=== PATIENT | male | born 1985 ===

== ENCOUNTER 2022-02-02 07:18 | Outpatient (REF) | payer SELFPAY ==
--- NOTE | ~2022-02-02 | FL_ITS ---
EXAMINATION: XR FLUOROSCOPY WITH IMAGES CLINICAL INFORMATION: M47.816 - Spondylosis without myelopathy or radiculopathy, lumbar region COMPARISON: Radiographs lumbar spine 02/19/2020 ([facility]). TECHNIQUE: Fluoroscopy performed by Dr. Zev Singh. Fluoroscopy time: 0.6 minutes. Cumulative Dose: 10.3 mGy. DAP: 2.81 Gy-cm2. Images: 6. FINDINGS: There are spinal needles overlying the bilateral outer L3, L4, and L5 neural foramen. There is contrast seen in the respective nerve sheaths. Some early transforaminal epidural extension is suggested. No visible vascular communication. FL/FL guidance in treatment room IMPRESSION: Fluoroscopy for pain management procedures.
== END 2022-02-02 07:19 | disposition home or self-care (01) ==
LOC: HO.RADIR 07:18
PROVIDERS: Visit Provider Anesthesiology
DX: M47.816 Spondylosis without myelopathy or radiculopathy, lumbar region (principal); G89.4 Chronic pain syndrome
CPT/HCPCS: 64493; 64494; J2795

== ENCOUNTER 2022-03-02 06:02 | Outpatient (REF) | payer OTHER, SELFPAY | END 2022-03-02 06:03 | disposition home or self-care (01) | LOC: CF 06:02 | PROVIDERS: Visit Provider Anesthesiology | DX: Z13.89 Encounter for screening for other disorder (principal) ==

== ENCOUNTER 2022-03-23 05:55 | Outpatient (REF) | payer OTHER, SELFPAY ==
--- NOTE | ~2022-03-23 | FL_ITS ---
EXAMINATION: XR FLUOROSCOPY WITH IMAGES CLINICAL INFORMATION: M47.816 - Spondylosis without myelopathy or radiculopathy, lumbar region COMPARISON: Radiographs lumbar spine 02/19/2020 TECHNIQUE: Fluoroscopy performed by Dr. Zev Singh. Fluoroscopy time: 0.6 minutes. Cumulative Dose: 10.2 mGy. DAP: 0.79 Gy-cm2. Images: 7. FINDINGS: There are spinal needles overlying the bilateral outer L3, L4, and L5 neural foramen. There is contrast seen in the respective nerve sheaths. Some early transforaminal epidural extension is suggested. No visible vascular communication. FL/FL guidance in treatment room IMPRESSION: Fluoroscopy for pain management procedures.
== END 2022-03-23 05:56 | disposition home or self-care (01) ==
LOC: CF 05:55
PROVIDERS: Visit Provider Anesthesiology
DX: M47.816 Spondylosis without myelopathy or radiculopathy, lumbar region (principal); G89.4 Chronic pain syndrome
CPT/HCPCS: 64490; 64491; Q9965

== ENCOUNTER 2023-07-14 13:26 | Outpatient (AMB) | payer SELFPAY ==
--- NOTE | 2023-07-14 13:33 | A.OFFVIS_ITS ---
Intake Vital Signs 07/14/23 13:39 Height 6 ft 1 in Weight 205 lb 6 oz BMI 27.1 BP 124/74 Blood Pressure Location Lt brachial Position Sitting Respiration 17 Pulse 88 Pulse Source Pulse Oximeter Pulse Oximetry (%) 97 Oxygen Delivery Method Room Air Intake Visit Reasons: Back pain/lvm Intake Note: Patient comes in for back pain. Reports pain 03/01. Allergies No Known Allergies Allergy (Verified 07/14/23 13:37) HPI HPI Comments History of Present Illness Details Chalino is in the office today to discuss results of diagnostic medial branch block with ropivacaine which was done on 03/23/2022. Reported that he had 1 year of pain relief with this procedure. He requests me to repeat this procedure with steroids. I will schedule the procedure as soon as possible. He also complains on pain in the projection of the coccyx. I will schedule him in 1 month from the therapeutic medial branch block for the ganglion impar injection to treat his coccydynia. PNS sprint was also discussed today as well as radiofrequency ablation. However the patient does not want to go for the radiofrequency ablation, he does not like the idea of sprint PNS because he needs to get involved in the care of his parents and help them to perform ADLs as well as assist them with transportation, guarding, lifting. results of diagnostic medial branch block L3-L4 dorsal ramus L5 bilateral 2. With ropivacaine done on 03/23/2022. He reports 75-100% pain improvement after the procedure for the 1st 9 hours. Risks and benefits of the procedure were carefully explained to the patient. Patient was asking numerous questions about the procedure. I will schedule the patient for the procedures as above. Prior: He complains on 2 pain generators in lower lumbar spine without radiation and he had another 1 in the thoracic spine in between the shoulder blades also without radiations. 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 he had MRI many years ago back in [facility] the results are not available, he had physical therapy 2 years ago he reports no pain improvement, without any significant improvement for his pain. He reports that massage therapy helped minimally for his pain he tried acupuncture but it was not helpful for his pain. He has home traction unit however he does not use it recently because he noticed that this is not helpful for his pain. In the past he received [facility] injections with steroids it sounds like from his explanation the injections were facet joint injections or may be medial branch blocks in the thoracic spine. The note from [facility] reports that he will be scheduled for sacroiliac joint injection however I do not have records demonstrating sacroiliac joint injection to be performed Review of Systems Const All systems reviewed & are unremarkable except as noted in HPI and below ENT Reports Normal hearing present Neuro Reports Normal hearing present, Denies Abnormal speech present and Denies Sensory deficit (Neuro) Physical Exam Vital Signs: Last Vital Signs Pulse 88 07/14/23 13:39 Resp 17 07/14/23 13:39 BP 124/74 07/14/23 13:39 Pulse Ox 97 07/14/23 13:39 Oxygen Delivery Method Room Air 07/14/23 13:39 BMI result Body Mass Index 27.1 Const General: no acute distress Orientation/consciousness: patient oriented x3 Eyes General: appearance normal, both eyes and all related structures Pupils: Equal, round and reactive pupils present EOM: EOMs intact bilaterally Neck Neck: Yes full ROM Chest Chest palpation & inspection: normal inspection of the chest Resp Effort & Inspection: normal respiratory effort, able to speak in complete sentences, normal respiratory pattern, no audible wheezes and no cough Cardio Jugular venous distension: no JVD GI Inspection: Yes normal to inspection Back/Spine/Pelvis Other: He is able to stand on bilateral tiptoes in bilateral heels without difficulty. He is able to lift both great toes from the ground without involving the rest of the toes. This demonstrates normal extremity strength and muscular function. He is able to flex himself forward and backwards he reports significant difficulty with flexing backwards. Loading test is positive bilaterally. Polo test at the best is equivocal and rather negative. Tenderness on palpation in the projection of the coccygeal spine. Neuro General: patient oriented x3 and gait normal Cranial nerves: Yes CN's II-XII intact bilaterally, Yes Equal, round and reactive pupils present, Yes Normal hearing present and Yes Ability to bilaterally elevate shoulders present Speech: No Abnormal speech present Gait exam (Neuro): Normal gait present Motor exam (neuro): 5/5 motor strength present throughout Sensory Exam: No Sensory deficit (Neuro) Extrem General: No pedal edema Psych Speech and movement: Normal speech and movement present Affect: normal affect Attitude: cooperative Thought process: Normal thought process present Thought content: Normal thought content present Insight: Good insight present (Psych) Judgement: Good judgement present (Psych) Assessment & Plan Assessment & Plan (1) Spondylosis of lumbar region without myelopathy or radiculopathy: Code(s): M47.816 - Spondylosis without myelopathy or radiculopathy, lumbar region (2) Chronic pain syndrome: Code(s): G89.4 - Chronic pain syndrome Plan This patient is suffering from spondylosis of the lumbar spine and disc degeneration of the lumbar spine. Lasts [place] of this [place]. Diagnostic MBB 1. Resulted in 75% pain improvement in about 2 hours. Diagnostic 2. With ropivacaine resulted in 100% to 75% for the 9 hours after the injection. Options of RFA versus sprint were given to the patient. He is choosing to go for therapeutic injection instead. He also requests me to perform ganglion impar injection. I will schedule a ganglion impar injection for treatment of his coccydynia after 1 month from the diagnostic MBB. Coding Level of Care Code Est Pt Level 5 (61455) Diagnoses Spondylosis of lumbar region without myelopathy or radiculopathy M47.816 Chronic pain syndrome G89.4
[2023-07-14 13:39] VITALS: BP 124/74; PULSE 88; RESP 17; O2SAT 97; BMI 27.1
== END 2023-07-14 14:10 | disposition home or self-care (01) ==
PROVIDERS: PCP Internal Medicine; Visit Provider Anesthesiology
DX: M47.816 Spondylosis without myelopathy or radiculopathy, lumbar region (principal); G89.4 Chronic pain syndrome; M53.3 Sacrococcygeal disorders, not elsewhere classified
CPT/HCPCS: 99215

== ENCOUNTER → 2023-07-14 13:26 | Outpatient (BNVA) | payer SELFPAY | PROVIDERS: PCP Internal Medicine; Visit Provider Anesthesiology ==